=== PATIENT | female | born 1975 | race Two or more races ===

== ENCOUNTER 2024-09-12 16:20 | Emergency (ER) | payer OTHER ==
[~2024-09-12] VITALS: Ht 172.7 cm; Wt 62.1 kg
[~2024-09-12 16:20] MED LIST: PAXIL10 MG/5 ML; XANAX XR0.5 MG PO
[2024-09-12] MEDS ORDERED: ADERRAL (16:59)
[2024-09-12] MEDS ORDERED: KETOROLAC TROMETHAMINE 60 MG VIAL IM ONE ×2 (18:41→18:45)
[2024-09-12] MEDS ORDERED: IBUPROFEN600 MG PO (20:39)
== END 2024-09-12 21:33 | disposition home or self-care (01) ==
LOC: ER 16:21
DX: S60.041A Contusion of right ring finger without damage to nail, initial encounter (principal); X58.XXXA Exposure to other specified factors, initial encounter; Y93.89 Activity, other specified; Y92.89 Other specified places as the place of occurrence of the external cause; Y99.9 Unspecified external cause status

== ENCOUNTER 2025-03-15 13:44 | Outpatient (CLI) | payer OTHER ==
[~2025-03-15 13:44] MED LIST changes: +ADERRAL; +IBUPROFEN600 MG PO
== END 2025-03-15 13:52 | disposition home or self-care (01) ==
LOC: SONOGRAMA 13:44
PROVIDERS: ATTEND General Practice
DX: N28.1 Cyst of kidney, acquired (principal); N20.0 Calculus of kidney